=== PATIENT | female | born 1990 | race Caucasian/White ===

== ENCOUNTER 2018-11-21 17:36 | Emergency (ER) | payer BC ==
[~2018-11-21] VITALS: Ht 162.6 cm; Wt 71.3 kg
[2018-11-21 17:40] VITALS: BP 137/83
--- NOTE | 2018-11-21 17:45 | NUR ---
PT AMBULATES TO BED 11
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
[2018-11-21 19:06] LABS: APPEARANCE,URINE CLEAR (CLEAR); BILIRUBIN,URINE NEGATIVE (NEGATIVE); BLOOD, URINE 1+ (NEGATIVE); COLOR,URINE YELLOW (YELLOW); LEUKOCYTE ESTERASE ,URINE TRACE (NEGATIVE); NITRITE, URINE NEGATIVE (NEGATIVE); PH,URINE 6.5 (5.0-9.0); UGLUCOSE NEGATIVE (NEGATIVE)
[2018-11-21 19:09] LABS: RBC,URINE 0-5 (RARE) /HPF (0-5)
[2018-11-21 19:10] LABS: WBC,URINE 0-5 (RARE) /HPF (0-5)
--- NOTE | 2018-11-21 19:11 | NUR ---
Report given VERONIKA Shields
[2018-11-21 19:21] VITALS: BP 101/58
--- NOTE | 2018-11-21 19:21 | NUR ---
Patient discharged with v/s stable. Written and verbal after care instructions given and explained. Patient verbalized understanding. Ambulatory with steady gait. All questions addressed prior to discharge. Advised to follow up with PMD.
== END 2018-11-21 19:21 | disposition home or self-care (01) ==
LOC: MED 17:36
DX: O26.891 Other specified pregnancy related conditions, first trimester (principal); I49.3 Ventricular premature depolarization; Z3A.01 Less than 8 weeks gestation of pregnancy
CPT/HCPCS: 36415; 81001; 84702; 87086; 93005; 99284